=== PATIENT | male | born 1960 | race Caucasian/White ===

== ENCOUNTER 2023-07-17 10:55 | Day surgery (SDC) | payer BC ==
[2023-07-16 09:48] VITALS: BMI 38.7
[~2023-07-17 10:55] MED LIST: LACTATED RINGERS 1,000 ML IV SCH; LIDOCAINE 1% (10MG/ML) FOR IV START INTRADERMA PRN
[2023-07-17 11:28] VITALS: TEMP 97.1
[2023-07-17] MEDS ORDERED: LIDOCAINE 2% INJ 20 MG/ML (2 ML VIAL) ONE (11:59)
[2023-07-17] MEDS ORDERED: PROPOFOL 10 MG/ML 20 ML VIAL IV ONE (11:59)
--- NOTE | 2023-07-17 12:34 | P.PCN ---
Date of Procedure: 07/17/23 Procedure(s) Performed: BRIEF HISTORY: Patient is a 62-year-old pleasant white male scheduled for an elective colonoscopy as a part of screening for colon cancer. PROCEDURE PERFORMED: Colonoscopy with snare polypectomy PREOPERATIVE DIAGNOSIS: Screening for colon cancer. IV sedation per Anesthesia. PROCEDURE: After informed consent was obtained, the patient, was brought into the endoscopy unit. IV sedation was administered by Anesthesia under continuous monitoring. Digital rectal examination was normal. Initially the Olympus CF-160 flexible video colonoscope was then inserted in the rectum, gradually advanced into the cecum without any difficulty. Careful examination was performed as the scope was gradually being withdrawn. Ileocecal valve and the appendiceal orifice were visualized and appeared normal. Prep was excellent. Mucosa of the cecum, and had a 3 mm polyp that was removed by cold snare polypectomy. In the ascending colon there was a 1 cm polyp removed by snare polypectomy. In the hepatic flexure there was a 5 mm and 1 cm polyp removed by snare polypectomy rest of the ascending colon, transverse colon, descending colon, appeared normal. In the sigmoid: There was a 4 mm polyp removed by snare polypectomy. Rest of the sigmoid colon, and rectum appeared normal. Retroflexion was performed in the rectum and no lesions were seen. The patient tolerated the procedure well. IMPRESSION: 3 mm cecal polyp status post cold snare polypectomy 1 cm ascending colon polyp status post snare polypectomy 5 mm and 7 mm polyp status post polypectomy 4 mm sigmoid polyp status post polypectomy RECOMMENDATIONS: Findings of this examination were discussed with the patient as well as his family. He was advised to follow with the biopsy results. If the biopsy results when he can have a repeat colonoscopy in 3 years..
[2023-07-17 12:41] VITALS: RESP 16
[2023-07-17 12:53] VITALS: BP 110/78; PULSE 75
== END 2023-07-17 13:11 | disposition home or self-care (01) ==
LOC: ORWHC2ENDO 10:55
PROVIDERS: ATTEND Internal Medicine Gastroenterology
DX: Z12.11 Encounter for screening for malignant neoplasm of colon (principal); D12.0 Benign neoplasm of cecum; D12.2 Benign neoplasm of ascending colon; D12.3 Benign neoplasm of transverse colon; D12.5 Benign neoplasm of sigmoid colon; I10 Essential (primary) hypertension; E78.5 Hyperlipidemia, unspecified; K21.9 Gastro-esophageal reflux disease without esophagitis; Z79.811 Long term (current) use of aromatase inhibitors; Z79.899 Other long term (current) drug therapy
CPT/HCPCS: 88305; 45385; J2704; J2001